=== PATIENT | male | born 1960 | race Caucasian/White ===

== ENCOUNTER 2017-02-02 13:20 | Emergency (ER) | payer OTHER ==
[2017-02-02 13:45] VITALS: BP 159/92; PULSE 85; RESP 18; TEMP 97.7; O2SAT 93
--- NOTE | 2017-02-02 14:17 | EDPHY ---
H & P Stated Complaint: Pt reports R elbow pain w/extension - shoots down into fingers x 2 week Time Seen by Provider: 02/02/17 14:06 HPI/ROS: CHIEF COMPLAINT: Right elbow pain HISTORY OF PRESENT ILLNESS: The patient is a 56-year-old man who comes to the emergency department complaining of right elbow pain for the last 2 weeks. He states that he thinks he pinched a nerve. He states that it hurts primarily over the lateral malleolus of his elbow and down into his 4th and 5th digit. Pain with movement. Pain with supination. No fevers. No swelling or erythema. No known trauma. He denies falling asleep on the arm or resting it on a window ledge etc. REVIEW OF SYSTEMS: Constitutional: denies: chills, fever, recent illness, recent injury EENTM: denies: blurred vision, double vision, nose congestion Respiratory: denies: cough, shortness of breath Cardiac: denies: chest pain, irregular heart rate, lightheadedness, palpitations Gastrointestinal/Abdominal: denies: abdominal pain, diarrhea, nausea, vomiting, blood streaked stools Genitourinary: denies: dysuria, frequency, hematuria, pain Musculoskeletal: See HPI Skin: denies: lesions, rash, jaundice, bruising Neurological: denies: headache, numbness, paresthesia, tingling, dizziness, weakness Hematologic/Lymphatic: denies: blood clots, easy bleeding, easy bruising Immunologic/allergic: denies: HIV/AIDS, transplant EXAM: GENERAL: Well-appearing, well-nourished and in no acute distress. HEAD: Atraumatic, normocephalic. EYES: Pupils equal round and reactive to light, extraocular movements intact, sclera anicteric, conjunctiva are normal. ENT: TMs normal, nares patent, oropharynx clear without exudates. Moist mucous membranes. NECK: Normal range of motion, supple without lymphadenopathy or JVD. LUNGS: Breath sounds clear to auscultation bilaterally and equal. No wheezes rales or rhonchi. HEART: Regular rate and rhythm without murmurs, rubs or gallops. ABDOMEN: Soft, nontender, normoactive bowel sounds. No guarding, no rebound. No masses appreciated. BACK: No CVA tenderness, no spinal tenderness, step-offs or deformities EXTREMITIES: Pain to right elbow and lateral forearm and 4th and 5th digits. No tenderness to palpation. No swelling or erythema. NEUROLOGICAL: Cranial nerves II through XII grossly intact. Normal speech, normal gait. 5/5 strength, normal movement in all extremities, normal sensation PSYCH: Normal mood, normal affect. SKIN: Warm, dry, normal turgor, no visible rashes or lesions. Source: Patient Exam Limitations: No limitations - Personal History Current Tetanus/Diphtheria Vaccine: Yes - Medical/Surgical History Hx Asthma: No Hx Chronic Respiratory Disease: No Hx Diabetes: No Hx Cardiac Disease: No Hx Renal Disease: No Hx Cirrhosis: No Hx Alcoholism: No Hx HIV/AIDS: No Hx Splenectomy or Spleen Trauma: No Other PMH: Kam[place]-rectal abscess with surgical draining. Gall Bladder Removed ~ 2014 - Family History Significant Family History: No pertinent family hx - Social History Smoking Status: Never smoked Alcohol Use: Sober Drug Use: None Constitutional: Initial Vital Signs Temperature (C) 36.5 C 02/02/17 13:39 Heart Rate 85 02/02/17 13:39 Respiratory Rate 18 02/02/17 13:39 Blood Pressure 159/92 H 02/02/17 13:39 O2 Sat (%) 93 02/02/17 13:39 O2 Delivery Mode Room Air Allergies/Adverse Reactions: Penicillins Allergy (Intermediate, Verified 05/15/14 18:01) Rash Home Medications: Medication Instructions Recorded Miscellaneous Medical Supply [NO 1 ea [facility] [place] [facility] 09/07/13 HOME MEDS] Medical Decision Making - Diagnostics Imaging: I viewed and interpreted images myself ED Course/Re-evaluation: 2:50 p.m. we discussed the x-ray results. The patient is relieved. I suspect he has a tendinitis or bursitis. I recommended rest and anti-inflammatories. I will have him follow up with Hand surgery if his symptoms are not improving. We also discussed indications for returning including loss of function or fevers or infections. Differential Diagnosis: Partial list of the Differential diagnosis considered include but were not limited to; neuropathy, tendinitis, bursitis and although unlikely based on the history and physical exam, I also considered fracture, subluxation, infection, arthritis. Departure - Departure Disposition: Home, Routine, Self-Care Clinical Impression: Neuropathy Condition: Fair Instructions: Peripheral Neuropathy (ED) Referrals: Otteman,Perfecto B, DO [Primary Care Provider] - As per Instructions Jon Ceballos MD [Medical Doctor] - As per Instructions
== END 2017-02-02 14:57 | disposition home or self-care (01) ==
LOC: CED 13:20
DX: G62.9 Polyneuropathy, unspecified (principal)
CPT/HCPCS: 73080-PO